=== PATIENT | female | born 1930 | race Caucasian/White ===

== ENCOUNTER 2017-07-27 12:47 | Observation (INO) ==
[2017-07-27] MEDS ORDERED: LACTATED RINGERS 1,000 ML IV ONE (12:59)
--- NOTE | 2017-07-27 13:02 | Emergency Department Note ---
General Adult HPI - General Chief complaint: Weakness Stated complaint: Weak Time Seen by Provider: 07/27/17 12:54 Source: EMS Mode of arrival: EMS - History of Present Illness HPI Narrative: This patient lives at [facility] and has advanced Alzheimer's disease. She is less responsive today and so sent to the emergency room by ambulance. has not seen her today but does show up in the emergency room. No specific symptoms available. Has had a recent UTI. - Related Data Allergies Allergy/AdvReac Type Severity Reaction Status Date / Time No Known Drug Allergies Allergy Verified 07/27/17 12:48 Review of Systems Limitations: ROS unobtainable due to patients medical condition Past Medical History - Past Medical History Medical history: Reports: dementia, hypertension Surgical history ED: Reports: hip replacement, knee replacement - Social History smoking status: Never smoker Physical Exam Limitations: altered mental status General appearance: in no apparent distress Head: atraumatic, normocephalic Eye: Present: normal appearance ENT: normal exam Neck: Present: normal inspection Chest: Present: normal inspection Respiratory: Present: normal lung sounds bilaterally Cardiovascular: Present: regular rate, normal rhythm, normal heart sounds Abdominal: Present: soft. Absent: distention, tenderness Neurological: Present: alert Psychiatric: Present: normal affect, normal mood Skin: Present: warm, dry, intact Course Vital Signs Temperature 97.8 F 07/27/17 12:48 Pulse Rate 113 H 07/27/17 12:48 Respiratory Rate 20 07/27/17 12:48 Blood Pressure 131/90 07/27/17 12:48 Pulse Oximetry (%) 95 07/27/17 12:48 Temperature 97.8 F 07/27/17 12:48 Pulse Rate 110 H 07/27/17 14:08 Respiratory Rate 25 H 07/27/17 14:42 Blood Pressure 203/96 07/27/17 14:42 Pulse Oximetry (%) 94 07/27/17 14:08 Medical Decision Making - MDM Narrative Medical decision making narrative: This demented patient has a small pneumonia in the right upper lobe. 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 I did talk with the neurosurgeon Dr. Beck about this. She will be admitted for IV antibiotics. - Lab Data Lab results reviewed: Yes I reviewed the patient's lab results. Result diagrams: 07/27/17 13:12 07/27/17 13:05 Lab Results 07/27/17 07/27/17 07/27/17 Range/Units 13:05 13:05 13:12 WBC 21.6 H (4.5-11.0) K/mcL RBC 4.90 (4.00-5.20) M/mcL Hgb 14.8 (12.0-15.0) g/dL Hct 44.0 (36.0-48.0) % MCV 89.9 (80.0-100.0) fL MCH 30.3 (26.0-34.0) pg MCHC 33.7 (31.0-36.0) g/dL RDW 13.3 (11.5-14.5) % Plt Count 223 (140-440) K/mcL MPV 9.3 (7.4-10.4) fL Gran % 89.8 H (38.0-78.0) % Lymph % (Auto) 4.8 L (15.5-49.0) % Bonner % (Auto) 3.1 (1.0-12.0) % Eos % (Auto) 2.2 (0.0-7.0) % Baso % (Auto) 0.1 (0.0-2.0) % Gran # 19.4 H (1.8-8.0) K/mcL Lymph # (Auto) 1.0 L (1.5-4.8) K/mcL Bonner # (Auto) 0.7 (0.1-0.9) K/mcL Eos # (Auto) 0.5 (0.0-0.7) K/mcL Baso # (Auto) 0 (0.0-0.3) K/mcL VBG Lactic Acid 1.6 (0.5-2.2) mmol/L Sodium 144 (133-145) mmol/L Potassium 4.7 (3.3-5.1) mmol/L Chloride 107 (96-108) mmol/L Carbon Dioxide 18 L (22-30) mmol/L Anion Gap 19.0 H (8-16) BUN 77 H (8-23) mg/dl Creatinine 2.2 H (0.6-1.1) mg/dl GFR Calculation 20 Glucose 144 H (70-105) mg/dL Calcium 9.8 (8.6-10.4) mg/dl Total Bilirubin 0.4 (0.0-1.0) mg/dL AST 17 (0-37) U/l ALT 10 (0-40) U/l Alkaline Phosphatase 96 (39-117) U/L Total Protein 7.2 (5.9-8.4) gm/dL Albumin 3.9 (3.2-5.2) gm/dL Globulin 3.3 (2.2-3.7) gm/dL Albumin/Globulin Ratio 1.2 (1.0-2.3) Urine Color Urine Appearance Urine pH (5.0-9.0) Ur Specific [place] (1.000-1.035) Urine Protein (NEG) mg/dL Urine Glucose (UA) (NEG) mg/dL Urine Ketones (NEG) mg/dL Urine Occult Blood (<0.03) mg/dL Urine Nitrate (NEG) Urine Bilirubin (NEG) mg/dL Urine Urobilinogen (NEG) mg/dL Ur Leukocyte Esterase (NEG) /uL Urine RBC (0-1) /hpf Urine WBC (0-4) /hpf Ur Squamous Epith Cells (0-4) /hpf Ur Transition Epith Cell (0-2) /hpf Urine Bacteria (0) /hpf Urine Mucus (0) /hpf Ur Culture Indicated? 07/27/17 Range/Units 14:00 WBC (4.5-11.0) K/mcL RBC (4.00-5.20) M/mcL Hgb (12.0-15.0) g/dL Hct (36.0-48.0) % MCV (80.0-100.0) fL MCH (26.0-34.0) pg MCHC (31.0-36.0) g/dL RDW (11.5-14.5) % Plt Count (140-440) K/mcL MPV (7.4-10.4) fL Gran % (38.0-78.0) % Lymph % (Auto) (15.5-49.0) % Bonner % (Auto) (1.0-12.0) % Eos % (Auto) (0.0-7.0) % Baso % (Auto) (0.0-2.0) % Gran # (1.8-8.0) K/mcL Lymph # (Auto) (1.5-4.8) K/mcL Bonner # (Auto) (0.1-0.9) K/mcL Eos # (Auto) (0.0-0.7) K/mcL Baso # (Auto) (0.0-0.3) K/mcL VBG Lactic Acid (0.5-2.2) mmol/L Sodium (133-145) mmol/L Potassium (3.3-5.1) mmol/L Chloride (96-108) mmol/L Carbon Dioxide (22-30) mmol/L Anion Gap (8-16) BUN (8-23) mg/dl Creatinine (0.6-1.1) mg/dl GFR Calculation Glucose (70-105) mg/dL Calcium (8.6-10.4) mg/dl Total Bilirubin (0.0-1.0) mg/dL AST (0-37) U/l ALT (0-40) U/l Alkaline Phosphatase (39-117) U/L Total Protein (5.9-8.4) gm/dL Albumin (3.2-5.2) gm/dL Globulin (2.2-3.7) gm/dL Albumin/Globulin Ratio (1.0-2.3) Urine Color Yellow Urine Appearance Clear Urine pH 5.0 (5.0-9.0) Ur Specific [place] 1.016 (1.000-1.035) Urine Protein 30 A (NEG) mg/dL Urine Glucose (UA) Negative (NEG) mg/dL Urine Ketones Neg (NEG) mg/dL Urine Occult Blood Neg (<0.03) mg/dL Urine Nitrate Neg (NEG) Urine Bilirubin Neg (NEG) mg/dL Urine Urobilinogen Neg (NEG) mg/dL Ur Leukocyte Esterase Neg (NEG) /uL Urine RBC 0 (0-1) /hpf Urine WBC < 1 (0-4) /hpf Ur Squamous Epith Cells < 1 (0-4) /hpf Ur Transition Epith Cell < 1 (0-2) /hpf Urine Bacteria 0 (0) /hpf Urine Mucus Few (0) /hpf Ur Culture Indicated? No - Radiology Data Radiology results reviewed: Yes I reviewed the patient's radiology results. 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
[2017-07-27 13:39] LABS: Basophils # (Auto) 0 K/mcL (0.0-0.3); Basophils % (Auto) 0.1 % (0.0-2.0); Eosinophils # (Auto) 0.5 K/mcL (0.0-0.7); Eosinophils % (Auto) 2.2 % (0.0-7.0); Granulocytes % (Auto) 89.8 % (38.0-78.0); Lymphocytes % (Auto) 4.8 % (15.5-49.0); Mean Cell Volume 89.9 fL (80.0-100.0); Mean Corpuscular HGB Conc 33.7 g/dL (31.0-36.0); Mean Corpuscular Hemoglobin 30.3 pg (26.0-34.0); Monocytes # (Auto) 0.7 K/mcL (0.1-0.9); Monocytes % (Auto) 3.1 % (1.0-12.0); Platelet Count 223 K/mcL (140-440); Red Cell Distribution Width 13.3 % (11.5-14.5)
--- NOTE | 2017-07-27 13:44 | Cat Scan Report ---
CLINICAL INFORMATION: Decreased consciousness COMPARISON: Head CT from 05/15/2011 TECHNIQUE: 2.5 mm helical slices were obtained in the skull base to vertex. Following reconstruction, axial reformatted images were reviewed at bone and parenchymal windows. The exam was performed using radiation dose optimization techniques including, but not limited to, automated exposure control, adjustment of the mA and/or kV according to patient size and use of iterative reconstruction technique. FINDINGS: The ventricles, sulci, fissures and cisterns are enlarged with disproportionate ventricular enlargement suggesting normal pressure hydrocephalus. It has increased from the previous study. Moderate chronic ischemic changes are noted in the cerebral white matter which have progressed considerably. There is no acute cerebral hemorrhage, mass effect, edema or other acute intracerebral abnormality. Bone windows show no osseous abnormality IMPRESSION: Moderate atrophy with disproportionate ventricular enlargement compatible with superimposed normal pressure hydrocephalus. This is new from the 2012 remote study. Extensive chronic ischemic changes in the the cerebral white matter have progressed. 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
--- NOTE | 2017-07-27 13:46 | XRay Report ---
CLINICAL INFORMATION: Decreased level consciousness COMPARISON: 05/15/2011 FINDINGS: Heart is moderately enlarged - increased. Mediastinum and pulmonary vessels are unremarkable. Possible developing infiltrate in the medial right upper lobe. No effusion IMPRESSION: Possible developing infiltrate in the medial right upper lobe. This could also be artifact. Suggest two view upright chest x-ray for reevaluation Moderate cardiomegaly - increasing the no evidence of CHF Interpreted and Authenticated by: Jossue Lam 07/27/17
[2017-07-27 14:02] LABS: ALT/SGPT 10 U/l (0-40); Albumin 3.9 gm/dL (3.2-5.2); Albumin/Globulin Ratio 1.2 (1.0-2.3); Alkaline Phosphatase 96 U/L (39-117); Blood Urea Nitrogen 77 mg/dl (8-23)
[2017-07-27] MEDS ORDERED: ENALAPRILAT 1.25 MG/ML VIAL IV ONE (14:15)
[2017-07-27 14:40] LABS: Appearance,Urine CLEAR; Bacteria,Urine 0 /hpf (0); Bilirubin,Urine NEG (NEG); Color,Urine YELLOW; Glucose,Urine (UA) NEGATIVE (NEG); Leukocyte Esterase,Urine NEG /uL (NEG); Mucus,Urine FEW /hpf (0); Protein,Urine 30 mg/dL (NEG); Specific Gravity,Urine 1.016 (1.000-1.035); Urine Blood NEG mg/dL (<0.03); Urine RBC 0 /hpf (0-1); Urine Squamous Epithelial Cell < 1 /hpf (0-4); Urine Transitional Epi Cells < 1 /hpf (0-2); Urine WBC < 1 /hpf (0-4); Urobilinogen,Urine NEG (NEG)
[2017-07-27] MEDS ORDERED: LEVOFLOXACIN 750 MG/150 ML BAG IV ONE (14:49)
[2017-07-27] MEDS ORDERED: ACETAMINOPHEN 650 MG/65 ML BOTTLE IV PRN (16:40)
[2017-07-27] MEDS: 0.9 % SODIUM CHLORIDE 1,000 ML IV SCH (16:53)
--- NOTE | 2017-07-27 21:36 | Internal Med History&Physical ---
Medical - H&P: HPI Patient information: Note initiated : 07/27/17 at 9:33 pm Service Date, if different from initiated Date: [] Patient: Betzaida Franklin 87 y/o F admitted on 07/27/17 for weakness. History of present illness: Ms. Franklin is a 87 year old F, resident of [facility], with advanced Alzheimer's dementia, presented by way of EMS for decreased responsiveness. Patient is unable to provide a history. She appears somewhat tachypneic, but denies SOB or pain. Records from [facility] dated 2015 revealed that patient had recurrent vertigo and falls and possibly has normal pressure hydrocephalus. ROS unobtainable: other (due to severe dementia) Medical - H&P: PMH Medical history: Alzheimer's dementia HTN Normal pressure hydrocephalus Surgical history: Knee and Hip replacement Social history: Resides in [facility] Smoking status: Smoker, status unknown Medical - H&P: Meds Allergies Allergy/AdvReac Type Severity Reaction Status Date / Time No Known Drug Allergies Allergy Verified 07/27/17 12:48 Medical - H&P: Exam - Constitutional Vitals: Temp Pulse Resp BP Pulse Ox 97.2 F 109 H 18 147/85 95 07/27/17 19:14 07/27/17 19:14 07/27/17 19:14 07/27/17 19:14 07/27/17 19:14 General appearance: mild distress (mildly tachypneic, open mouth breathing with revealed very dry mucosa), thin - Head Head exam: Present: normal inspection - Expanded ENT Exam Mouth exam: Present: dry mucosa - Respiratory Respiratory exam: Present: decreased breath sounds - Cardiovascular Cardiovascular exam: Present: normal rate and rhythm - GI/Abdominal GI/Abdominal exam: Present: normal bowel sounds, soft - Rectal Rectal exam: Present: deferred - Extremities Exam Extremities exam: Present: normal inspection Medical - H&P: Reslt - Labs CBC & Chem 7: 07/27/17 13:12 07/27/17 13:05 Labs: Short CBC 07/27/17 Range/Units 13:12 WBC 21.6 H (4.5-11.0) K/mcL Hgb 14.8 (12.0-15.0) g/dL Hct 44.0 (36.0-48.0) % Plt Count 223 (140-440) K/mcL BMP 07/27/17 13:05 Sodium 144 Potassium 4.7 Chloride 107 Carbon Dioxide 18 L BUN 77 H Creatinine 2.2 H Glucose 144 H Calcium 9.8 Liver Function 07/27/17 Range/Units 13:05 Total Bilirubin 0.4 (0.0-1.0) mg/dL AST 17 (0-37) U/l ALT 10 (0-40) U/l Alkaline Phosphatase 96 (39-117) U/L Albumin 3.9 (3.2-5.2) gm/dL Urine 07/27/17 Range/Units 14:00 Urine Color Yellow Urine Appearance Clear Urine pH 5.0 (5.0-9.0) Ur Specific [place] 1.016 (1.000-1.035) Urine Protein 30 A (NEG) mg/dL Urine Glucose (UA) Negative (NEG) mg/dL - Imaging and Cardiology Chest x-ray Additional comments: IMPRESSION: Possible developing infiltrate in the medial right upper lobe. This could also be artifact. Suggest two view upright chest x-ray for reevaluation Moderate cardiomegaly - increasing the no evidence of CHF CT scan - head Additional comments: Moderate atrophy with disproportionate ventricular enlargement compatible with superimposed normal pressure hydrocephalus. This is new from the 2012 remote study. Extensive chronic ischemic changes in the the cerebral white matter have progressed. 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 Is DNR + Normal Pressure Hydrocephalus DVT prophylaxis: SCDs Code status: DNR Medical - H&P: Qual - Stroke Symptom Onset Unknown: No - VTE Deep Vein Thrombosis/Pulmonary Embolism Present on Admission: No
[2017-07-27] MEDS: 0.9 % SODIUM CHLORIDE 10 ML SYRINGE IV SCH (22:04)
[2017-07-27] MEDS ORDERED: cefTRIAXone 1 GM VIAL IV SCH (22:15)
[2017-07-27] MEDS ORDERED: cefTRIAXone 1 GM VIAL ONE (22:22)
[2017-07-27] MEDS: PIPERACILLIN SODIUM/TAZOBACTAM 2.25 GM in DEXTROSE 5% IN WATER 50 ML IV SCH (22:34)
[2017-07-28] MEDS: PIPERACILLIN SODIUM/TAZOBACTAM 2.25 GM in DEXTROSE 5% IN WATER 50 ML IV SCH (05:36)
[2017-07-28] MEDS: 0.9 % SODIUM CHLORIDE 1,000 ML IV SCH (05:36)
[2017-07-28] MEDS: 0.9 % SODIUM CHLORIDE 10 ML SYRINGE IV SCH (05:39)
[2017-07-28 06:34] LABS: Mean Cell Volume 90.1 fL (80.0-100.0); Mean Corpuscular Hemoglobin 30.7 pg (26.0-34.0); Platelet Count 181 K/mcL (140-440); RBC 4.17 M/mcL (4.00-5.20); Red Cell Distribution Width 13.6 % (11.5-14.5)
[2017-07-28] MEDS ORDERED: METOPROLOL TARTRATE 5 MG/5 ML VIAL IV ONE (06:34)
[2017-07-28 07:01] LABS: ALT/SGPT 10 U/l (0-40); Albumin 3.5 gm/dL (3.2-5.2); Albumin/Globulin Ratio 1.4 (1.0-2.3); Alkaline Phosphatase 78 U/L (39-117); Bilirubin,Direct < 0.2 mg/dL (0.0-0.3); Blood Urea Nitrogen 70 mg/dl (8-23); Gamma Glutamyl Transpeptidase 10 U/L (5-36); Uric Acid 7.5 mg/dL (2.5-8.0)
[2017-07-28 09:05] LABS: Lymphocytes % 6 % (15-49); Monocytes % (Manual) 6 % (1-12); Platelet Estimate NORMAL (NORMAL); RBC Morphology NORMAL (NORMAL); Segmented Neutrophils % 88 % (38-78)
--- NOTE | 2017-07-28 23:26 | Death Note ---
Discharge Sum: Prov - Provider Patient information: Note initiated : 07/28/17 at 11:24 pm Service Date, if different from initiated Date: [] Patient: Betzaida Franklin 87 y/o F admitted on 07/27/17 for Weak/Pneumonia. Primary care physician: Marcie Stephens Consults: 07/27/17 14:49 Consult to Physician [CONS] Stat Comment: Consulting Provider: Primo Taylor Reason For Exam: Physician to Consult Discharge Sum: Diag - PCOD Cause of : Aspiration pneumonia Discharge Sum: Summary - Date and Time Date of admission: 07/27/17 16:26 Date of : 07/28/17 Time of : 12:30 - Summary Details: 87-year-old female, with history of severe Alzheimer's dementia, presented with aspiration pneumonia, hypoxia and renal failure. Despite poor prognosis, requested to proceed with antibiotics, but no other interventions. Patient was started on Zosyn, and given supplemental oxygen. Patient slowly declined with oxygen desaturation and decreased respiratory rate. was notified about patient's decline. He was at her bedside when patient peacefully at 12.30. Patient was pronounced. No autopsy was requested. - Additional Data Confirmation of as documented by pronouncing clinician: no pulse, no respirations, no heart sounds, pupils fixed and dilated Family: at bedside Attending physician: Primo Taylor MD Was code activated?: No Autopsy requested?: No hide examiner notified?: No Advance directives?: Yes
== END 2017-07-28 12:30 | disposition expired ==
LOC: ED 12:47 → MEDSUR 12:47
PROVIDERS: ADMIT Specialist; ATTEND Specialist